=== PATIENT | female | born 1945 | race Two or more races ===

== ENCOUNTER 2018-06-16 08:00 | Outpatient (CLI) | payer OTHER | END 2018-06-16 08:13 | disposition home or self-care (01) | LOC: TOM 08:00 | DX: M54.81 Occipital neuralgia (principal); M54.2 Cervicalgia; M47.892 Other spondylosis, cervical region; M50.323 Other cervical disc degeneration at C6-C7 level; M50.33 Other cervical disc degeneration, cervicothoracic region | CPT/HCPCS: 70460; 72125; Q9965 ==